=== PATIENT | male | born 1970 | race Caucasian/White ===

== ENCOUNTER 2021-04-05 06:20 | Emergency (ER) | payer MEDICARE ==
[2021-04-05] MEDS ORDERED: IBUPROFEN600 MG PO (08:16)
[2021-04-05] MEDS ORDERED: CYCLOBENZAPRINE10 MG PO (08:17)
== END 2021-04-05 08:32 | disposition home or self-care (01) ==
LOC: ER1 06:20
DX: G89.29 Other chronic pain (principal); M54.50 Low back pain, unspecified; E11.9 Type 2 diabetes mellitus without complications; Z79.84 Long term (current) use of oral hypoglycemic drugs; I10 Essential (primary) hypertension; Z88.1 Allergy status to other antibiotic agents; Z79.899 Other long term (current) drug therapy
CPT/HCPCS: 81001; 96372; 99283; J1100; J1170; J1885